=== PATIENT | male | born 1950 | race Caucasian/White ===

== ENCOUNTER → 2017-12-03 08:31 | Outpatient (CLI) | payer MEDICARE, BC, SELFPAY ==
--- NOTE | 2017-12-03 08:27 | DI.REPORT_ITS ---
SYMPTOM/DIAGNOSIS: F/U LT IF FRX LEFT INDEX FINGER: Three views. Comparison 11/17/17. There is again seen a percutaneous pin transfixing the distal interphalangeal joint of the left index finger. The displaced fracture fragment is unchanged in alignment.
== END ==
PROVIDERS: PCP Family Medicine; Visit Provider Physician Assistant
DX: S67.191D Crushing injury of left index finger, subsequent encounter (principal); S62.631D Displaced fracture of distal phalanx of left index finger, subsequent encounter for fracture with routine healing; S61.211D Laceration without foreign body of left index finger without damage to nail, subsequent encounter; W31.0XXD Contact with mining and earth-drilling machinery, subsequent encounter; W23.0XXD Caught, crushed, jammed, or pinched between moving objects, subsequent encounter
CPT/HCPCS: 73140

== ENCOUNTER → 2017-12-31 08:15 | Outpatient (CLI) | payer MEDICARE, BC, SELFPAY | PROVIDERS: PCP Family Medicine; Visit Provider Student in an Organized Health Care Education/Training Program | DX: S62.631D Displaced fracture of distal phalanx of left index finger, subsequent encounter for fracture with routine healing (principal) | CPT/HCPCS: 99213 ==

== ENCOUNTER → 2018-02-05 08:35 | Outpatient (BNVA) | payer MEDICARE, BC, SELFPAY | PROVIDERS: Visit Provider Nurse Practitioner Gerontology | DX: N40.0 Benign prostatic hyperplasia without lower urinary tract symptoms (principal); R31.0 Gross hematuria; N52.9 Male erectile dysfunction, unspecified | CPT/HCPCS: 81003; 99213 ==

== ENCOUNTER 2018-06-05 11:08 | Outpatient (CLI) | payer MEDICARE, BC, SELFPAY ==
--- NOTE | 2018-06-05 10:15 | DI.RAD_ITS ---
SYMPTOM/DIAGNOSIS: URI SYMPTOMS WITH CHEST TIGHTNESS, SOB R06.02 PA AND LATERAL CHEST: 06/05/18 The heart is normal in size. The lungs are clear. The mediastinal structures and pleura appear intact. CONCLUSION: Normal chest.
== END 2018-06-05 11:28 ==
PROVIDERS: PCP Family Medicine; Visit Provider Family Medicine
DX: R06.02 Shortness of breath (principal); R07.89 Other chest pain
CPT/HCPCS: 87449; 71046

== ENCOUNTER → 2018-08-26 10:59 | Outpatient (BNVA) | payer MEDICARE, BC, SELFPAY | PROVIDERS: PCP Family Medicine; Visit Provider Student in an Organized Health Care Education/Training Program | DX: I21.4 Non-ST elevation (NSTEMI) myocardial infarction (principal); I10 Essential (primary) hypertension | CPT/HCPCS: 99214; 99213 ==

== ENCOUNTER 2018-09-08 00:56 | Outpatient (CLI) | payer MEDICARE, BC, SELFPAY ==
--- NOTE | 2018-09-08 10:58 | DI.CT_ITS ---
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 Sagittal and coronal reformatted images were evaluated on the Siemens work station. There is mild mucosal thickening seen in the frontal sinuses bilaterally. The ethmoid air cells are clear as are the sphenoid sinuses. There is minimal mucosal thickening seen in the floor of the maxillary sinuses bilaterally. No fluid levels are seen. The mastoid air cells are clear. The nasal septum is predominantly midline. The turbinates are unremarkable as are the ostiomeatal complexes. The orbits and retro-orbital soft tissues are unremarkable. IMPRESSION: Minimal mucosal thickening involving the frontal and maxillary sinuses bilaterally.
== END 2018-09-08 01:16 ==
PROVIDERS: PCP Family Medicine; Visit Provider Otolaryngology Otolaryngology/Facial Plastic Surgery
DX: J32.0 Chronic maxillary sinusitis (principal); H57.10 Ocular pain, unspecified eye
CPT/HCPCS: 70486

== ENCOUNTER 2018-09-14 14:09 | Outpatient (CLI) | payer MEDICARE, SELFPAY ==
[2018-09-14 15:28] LABS: C-Reactive Protein 0.16 mg/dL (0.0-0.3)
[2018-09-14 16:07] LABS: ESR 7 MM/HR (1-20)
[2018-09-16 16:06] LABS: Anaplasma phagocytophilum Negative (Negative); B. miyamotoi PCR Negative (Negative); Babesia divergens/MO-1 Negative (Negative); Babesia duncani Negative (Negative); Babesia microti Negative (Negative); Ehrlichia chaffeensis Negative (Negative); Ehrlichia ewingii/canis Negative (Negative); Ehrlichia muris eauclairensis Negative (Negative)
== END 2018-09-14 14:29 ==
PROVIDERS: PCP Family Medicine; Visit Provider Otolaryngology Otolaryngology/Facial Plastic Surgery
DX: R51 Headache (principal); H57.12 Ocular pain, left eye; W57.XXXA Bitten or stung by nonvenomous insect and other nonvenomous arthropods, initial encounter; T14.8XXA Other injury of unspecified body region, initial encounter
CPT/HCPCS: 36415; 85652; 86140; 86618; 87798

== ENCOUNTER → 2018-11-19 10:50 | Outpatient (BNVA) | payer MEDICARE, BC, SELFPAY | PROVIDERS: PCP Family Medicine; Referring Provider Physician Assistant; Visit Provider Psychiatry & Neurology Neurology | DX: G43.709 Chronic migraine without aura, not intractable, without status migrainosus (principal); R25.8 Other abnormal involuntary movements; G62.9 Polyneuropathy, unspecified; I10 Essential (primary) hypertension | CPT/HCPCS: 99205; 99215 ==

== ENCOUNTER 2018-12-15 16:04 | Outpatient (CLI) | payer MEDICARE, BC, SELFPAY ==
--- NOTE | 2018-12-15 15:30 | DI.RAD_ITS ---
SYMPTOMS/DIAGNOSIS: UPPER CERVICAL NEUROPATHY SYMPTOMS, G62.9 CERVICAL SPINE: Comparison is made with [id number]. Degenerative disc changes are again noted greatest at C 3 - 4. There are also facet degenerative changes. There is bilateral neural foraminal narrowing at C 3 - 4, left greater than right. The remaining neural foramen are well maintained. The airway appears intact. IMPRESSION: Degenerative changes greatest at C 3 - 4, causing bilateral neural foraminal narrowing.
== END 2018-12-15 16:24 ==
PROVIDERS: PCP Family Medicine; Visit Provider Family Medicine
DX: G62.9 Polyneuropathy, unspecified (principal)
CPT/HCPCS: 72050

== ENCOUNTER 2018-12-25 22:28 | Emergency (ER) | payer MEDICARE, BC, SELFPAY ==
--- NOTE | 2018-12-25 22:32 | ED.GENADUL_ITS ---
Discharge Plan Disposition Patient Disposition: HOME Condition: Good Discharge Details Chief Complaint: Chest Pain Clinical Impression: Food impaction of esophagus Primary Care Provider: Amor Myrick ED Provider: Juwan Hollins [place] Meds and New Rx's Prescriptions: Continued finasteride 5 mg tablet 5 mg PO DAILY Qty: 90 RF: 4 tamsulosin [Flomax] 0.4 mg capsule 0.8 mg PO DAILY Qty: 180 RF: 3 tadalafil [Cialis] 20 mg tablet 20 mg PO DIRECTED PRN (Reason: sexual activity) Qty: 6 RF: 0 rosuvastatin [Crestor] 20 mg tablet 20 mg PO DAILY Qty: 90 RF: 3 metoprolol succinate 50 mg tablet extended release 24 hr 50 mg PO DAILY RF: 0 lisinopril 10 mg tablet 10 mg PO DAILY Qty: 30 RF: 2 cholecalciferol (vitamin D3) 1,000 UNIT tablet 1,000 unit PO DAILY RF: 0 nitroglycerin [Nitrostat] 0.4 MG tablet, sublingual 0.4 mg Buccal ONCE RF: 0 lisinopril-hydrochlorothiazide 20-25 mg tablet 1 tab PO DAILY Qty: 90 RF: 3 gabapentin 300 mg capsule 300 mg PO DIRECTED Qty: 90 RF: 3 aspirin 81 MG tablet,chewable 81 mg PO DAILY RF: 0 ibuprofen 600 MG tablet 600 mg PO TID PRN PRNQty: 30 RF: 0 acetaminophen [Masophen] 500 MG tablet 500 mg PO Q4H PRN PRNQty: 60 RF: 0 Discharge Instructions Instructions: Food Impaction (ED) Additional Instructions: We will have you follow up with surgery for endoscopy in the future. Please chew your food well and eat slowly in the future. Return to ED if further episodes of food impaction, chest pain, shortness of breath, other concerns or problems. Referrals: Kiera Fisher MD [ [facility] STAFF PHYSICIAN] - Medical Decision Making Patient appears to have a food impaction likely steak that he ate for dinner. Will attempt effervescent granules to remove blockage. If this does not work we will move onto glucagon. Effervescent granules have worked. Patient felt the discomfort disappeared almost immediately after drinking the effervescent. He feels better. He is now able to drink a glass of water without problem. We discussed follow-up with general surgery for endoscopy in the future. We discussed chewing his food and eating slowly. Return to ED if recurrent obstruction, chest pain, shortness of breath, other concerns or problems. ECG Data Attestation: I personally reviewed and interpreted this ECG (s) as follows: Prior ECG tracings: not available for review Interpretation: Normal sinus rhythm at 68. Normal axis and intervals. No acute ST changes. HPI General Mode of arrival: ambulatory . Date/Time Provider Initiated Documentation: 12/25/18 22:30 . Limitations to Documentation: no limitations . Information obtained by: patient, RN notes reviewed and old records reviewed . HPI Narrative: Patient presents to ED with complaint of epigastric discomfort. He feels like there is something stuck in his esophagus. He denies having chest pain. He is not short of breath. He has been unable to take anything by mouth since eating at about 7:00 this evening. He is even unable to swallow his own saliva. He denies any shortness of breath. He has had similar yet mild issues in the past. Typically standing upright and walking around makes the sensation go away. Related Data Home Medications Medication Instructions Recorded Confirmed cholecalciferol (vitamin D3) 1,000 unit PO DAILY 06/28/16 12/24/18 nitroglycerin [Nitrostat] 0.4 mg BUCCAL ONCE tab-cap 03/24/17 12/25/18 acetaminophen [Masophen] 500 mg PO Q4H PRN PRN #60 tab 11/11/17 12/24/18 aspirin 81 mg PO DAILY 11/11/17 12/24/18 ibuprofen 600 mg PO TID PRN PRN #30 tab 11/11/17 12/25/18 finasteride 5 mg tablet 5 mg PO DAILY #90 tab-cap 02/05/18 12/24/18 tadalafil 20 mg tablet 20 mg PO DIRECTED PRN #6 tab 02/05/18 12/25/18 tamsulosin 0.4 mg capsule 0.8 mg PO DAILY #180 tab-cap 02/05/18 12/25/18 lisinopril 20 1 tab PO DAILY #90 tab-cap 02/26/18 12/25/18 mg-hydrochlorothiazide 25 mg tablet rosuvastatin 20 mg tablet 20 mg PO DAILY #90 tab-cap 05/28/18 12/25/18 gabapentin 300 mg capsule 300 mg PO DIRECTED #90 cap 11/24/18 12/24/18 lisinopril 10 mg tablet 10 mg PO DAILY #30 tab 11/26/18 12/25/18 metoprolol succinate 50 mg 50 mg PO DAILY 11/26/18 12/25/18 tablet,extended release 24 hr Previous Rx's Medication Instructions Recorded acetaminophen [Masophen] 500 mg PO Q4H PRN PRN #60 tab 11/11/17 ibuprofen 600 mg PO TID PRN PRN #30 tab 11/11/17 finasteride 5 mg tablet 5 mg PO DAILY #90 tab-cap 02/05/18 tadalafil 20 mg tablet 20 mg PO DIRECTED PRN #6 tab 02/05/18 tamsulosin 0.4 mg capsule 0.8 mg PO DAILY #180 tab-cap 02/05/18 lisinopril 20 1 tab PO DAILY #90 tab-cap 02/26/18 mg-hydrochlorothiazide 25 mg tablet rosuvastatin 20 mg tablet 20 mg PO DAILY #90 tab-cap 05/28/18 gabapentin 300 mg capsule 300 mg PO DIRECTED #90 cap 11/24/18 lisinopril 10 mg tablet 10 mg PO DAILY #30 tab 11/26/18 Allergies Allergy/AdvReac Type Severity Reaction Status Date / Time contrast dye AdvReac Intermediate delayed Uncoded 12/15/18 14:35 rash - occurred 3 days later (2010) Review of Systems Review of Systems As documented in HPI otherwise negative as below. 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) Erectile dysfunction (Chronic 06/04/16) Essential hypertension (Chronic 02/05/13) Foraminal stenosis of cervical region (Acute) Headache, chronic migraine without aura (Acute) Hyperlipidemia (Chronic 07/02/11) Surgical History Colonoscopy - IV Sedation (08/03/03) Colonoscopy - IV Sedation (09/29/03) Tonsillectomy Social History Smoking/Tobacco Use Status: Never Alcohol Intake: never Drug use: Never Substance use type: does not use Household members: spouse 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 Hypertensive otherwise normal vitals. Const: WDWN elderly male in NAD. HEENT: NC/AT. Normal facial exam. Eyes: Normal conjunctiva and sclera. Neck: Supple. Trachea midline. Lungs: Normal respiratory effort. Lungs are clear. Cor: RRR without murmur/gallop. Good radial pulses. GI: Soft. NT/ND. No guarding or rebound. Neuro: A+O x 3. CN grossly in tact. Good strength and no focal deficit. Ext: No C/C/E. No deformity or tenderness. Skin: Warm and dry without rash.
[2018-12-25 22:42] VITALS: BP 193/103; PULSE 72; RESP 17; TEMP 36.8; O2SAT 97
[2018-12-25] MEDS: Potassium Bicarbonate/Cit AC 25 MEQ TABLET.EFF PO (22:51)
--- NOTE | 2018-12-25 22:54 | NUR.NOTE ---
Per Dr Hollins, hold on IV/labs until further notice.Nursing Note:
[2018-12-25 23:01] VITALS: BP 156/93; PULSE 68; RESP 17; O2SAT 97
--- NOTE | 2018-12-25 23:04 | NUR.NOTE ---
pt states chest pain/feeling of object caught in throat is now resolved s/p drnking effervesent granuals. discharge pending. pt with no distress noted. Nursing Note:
== END 2018-12-25 23:15 | disposition home or self-care (01) ==
PROVIDERS: Emergency Provider Emergency Medicine; PCP Family Medicine
DX: T18.128A Food in esophagus causing other injury, initial encounter (principal); I25.10 Atherosclerotic heart disease of native coronary artery without angina pectoris; Z95.5 Presence of coronary angioplasty implant and graft; I10 Essential (primary) hypertension; K22.2 Esophageal obstruction
CPT/HCPCS: 93005; 99284; 93010

== ENCOUNTER → 2018-12-31 12:35 | Outpatient (BNVA) | payer MEDICARE, BC, SELFPAY | PROVIDERS: PCP Family Medicine; Visit Provider Nurse Practitioner Adult Health | DX: M54.2 Cervicalgia (principal); G43.709 Chronic migraine without aura, not intractable, without status migrainosus; G60.9 Hereditary and idiopathic neuropathy, unspecified; M25.512 Pain in left shoulder; I10 Essential (primary) hypertension | CPT/HCPCS: 99213 ==

== ENCOUNTER 2018-12-31 13:37 | Outpatient (CLI) | payer MEDICARE, BC, SELFPAY ==
[2018-12-31 15:22] LABS: Hemoglobin A1C 5.8 % (4.5-6.2)
[2018-12-31 15:31] LABS: TSH 1.55 uIU/mL (0.36-3.74); Vitamin B12 514 pg/mL (193-986)
[2019-01-01 13:46] LABS: Albumin 61.5 % (55.8-66.1); Total Protein 6.8 g/dl (6.3-8.2)
== END 2018-12-31 13:57 ==
PROVIDERS: PCP Family Medicine; Visit Provider Nurse Practitioner Adult Health
DX: G62.9 Polyneuropathy, unspecified (principal); I10 Essential (primary) hypertension; R73.09 Other abnormal glucose
CPT/HCPCS: 36415; 99213; 82607; 83036; 84165; 84443

== ENCOUNTER 2019-01-11 00:32 | Outpatient (CLI) | payer MEDICARE, BC, SELFPAY ==
--- NOTE | 2019-01-11 11:35 | DI.MRI_ITS ---
SYMPTOM/DIAGNOSIS: C3-4 FORAMINAL STENOSIS, NEEDS MRI FOR PAIN CLINIC M48.02, SPINAL STENOSIS CERVICAL REGION CERVICAL SPINE MRI: 01/11 MRI examination of the cervical spine was performed according to the usual protocol. There is a moderate exaggerated cervical lordosis. No significant bony signal abnormality seen. The visualized posterior fossa structures appear intact. There are mild hypertrophic changes of the facet joints and end plates as noted on plain films. At C3-4 there is an apparent central to left lateral disc herniation. There is narrowing of the neural foramen on the left at this level. No definite cord impingement and the intra cord signal appears normal throughout the cervical region. No additional disc abnormality seen. Neural foramina otherwise appear well maintained. CONCLUSION: Central and left sided disc herniation at C3-4 with associated left neural foraminal narrowing. No gross cervical spinal cord deformity or signal abnormality
== END 2019-01-11 00:52 ==
PROVIDERS: PCP Family Medicine; Visit Provider Family Medicine
DX: M48.02 Spinal stenosis, cervical region (principal); M50.23 Other cervical disc displacement, cervicothoracic region
CPT/HCPCS: 72141

== ENCOUNTER → 2019-03-08 08:30 | Outpatient (BNVA) | payer MEDICARE, BC, SELFPAY | PROVIDERS: PCP Family Medicine; Visit Provider Nurse Practitioner Gerontology | DX: N40.1 Benign prostatic hyperplasia with lower urinary tract symptoms (principal); R35.1 Nocturia; Z87.448 Personal history of other diseases of urinary system; N52.9 Male erectile dysfunction, unspecified; I10 Essential (primary) hypertension | CPT/HCPCS: 81003; 99213 ==

== ENCOUNTER → 2019-03-29 08:35 | Outpatient (BNVA) | payer MEDICARE, BC, SELFPAY | PROVIDERS: PCP Family Medicine; Referring Provider Family Medicine; Visit Provider Nurse Practitioner Adult Health | DX: G43.709 Chronic migraine without aura, not intractable, without status migrainosus (principal); G60.9 Hereditary and idiopathic neuropathy, unspecified | CPT/HCPCS: 99213 ==

== ENCOUNTER 2019-04-30 07:47 | Outpatient (REF) | payer MEDICARE, BC, SELFPAY ==
[2019-05-06 11:06] LABS: BUN 25 mg/dL (10-26); CO2 Total 30 mEq/L (22-32); Chloride 103 mEq/dL (96-110); Glucose 84 mg/dL (70-100); Potassium 3.8 mEq/L (3.5-5.0); Sodium 140 mEq/L (136-145)
[2019-05-06 11:22] LABS: eGFR 88 (>60)
[2019-05-06 11:23] LABS: Calcium 9.4 mg/dL (8.5-10.5)
== END 2019-04-30 08:07 ==
LOC: LBN 07:47
PROVIDERS: PCP Family Medicine; Visit Provider Family Medicine
DX: I95.1 Orthostatic hypotension (principal)
CPT/HCPCS: 80048

== ENCOUNTER 2019-09-03 10:00 | Outpatient (CLI) | payer MEDICARE, BC, SELFPAY ==
--- NOTE | 2019-09-03 13:00 | DI.CT_ITS ---
EXAM: CT HEAD WO CLINICAL HISTORY: Chronic worsening headache,R51. TECHNIQUE: Imaging Protocol: Axial computed tomography images with coronal and sagittal reformatted images were created and reviewed COMPARISON: CT sinus wo from 09/08/2018 FINDINGS: Ventricles and Extra axial spaces: Normal in size and morphology for the patient's age. Hemorrhage: None. Cerebral parenchyma: There are areas of decreased attenuation in the white matter most consistent wit h small vessel ischemic disease. No evidence of an acute territorial infarct. Midline shift: None. Brainstem/Cerebellum: Normal. Calvarium: Normal. Visualized Paranasal sinuses/Mastoids: Clear. Soft Tissues: Unremarkable. IMPRESSION: No acute intracranial process. RADIATION DOSE DELIVERED: Total DLP DATA REPOSITORY: All CT scans at this facility are submitted to the National Radiology Data Registry (NRDR) Dose Index Registry (DIR) with the [employer] (ACR). RADIATION OPTIMIZATION: All CT scans at this facility use at least one of these dose optimization te chniques: automated exposure control; mA and/or kV adjustment per patient size (includes targeted exa ms where dose is matched to clinical indication); or iterative reconstruction.
== END 2019-09-03 10:20 ==
PROVIDERS: PCP Family Medicine; Visit Provider Family Medicine
DX: R51 Headache (principal)
CPT/HCPCS: 70450

== ENCOUNTER → 2019-09-23 08:29 | Outpatient (BNVA) | payer MEDICARE, BC, SELFPAY | PROVIDERS: PCP Family Medicine; Referring Provider Family Medicine; Visit Provider Nurse Practitioner Adult Health | DX: G43.709 Chronic migraine without aura, not intractable, without status migrainosus (principal); R49.8 Other voice and resonance disorders; I10 Essential (primary) hypertension | CPT/HCPCS: 99213 ==

== ENCOUNTER → 2019-10-25 10:59 | Outpatient (BNVA) | payer MEDICARE, BC, SELFPAY | PROVIDERS: PCP Family Medicine; Referring Provider Family Medicine; Visit Provider Internal Medicine Cardiovascular Disease | DX: G47.33 Obstructive sleep apnea (adult) (pediatric) (principal); E78.5 Hyperlipidemia, unspecified; I25.119 Atherosclerotic heart disease of native coronary artery with unspecified angina pectoris; I10 Essential (primary) hypertension | CPT/HCPCS: 99204; 99215 ==

== ENCOUNTER → 2019-11-04 11:00 | Outpatient (BNVA) | payer MEDICARE, BC, SELFPAY | PROVIDERS: PCP Family Medicine; Referring Provider Family Medicine; Visit Provider Nurse Practitioner Adult Health | DX: G43.709 Chronic migraine without aura, not intractable, without status migrainosus; I10 Essential (primary) hypertension | CPT/HCPCS: 64405; 99213 ==

== ENCOUNTER 2019-11-16 01:38 | Outpatient (CLI) | payer MEDICARE, BC, SELFPAY ==
--- NOTE | 2019-11-16 14:45 | DI.MRI_ITS ---
EXAM: MR BRAIN WO CLINICAL HISTORY: worsening daily headaches, unresponsive to tx, chronic daily calixto, R51. TECHNIQUE: Multiplanar multisequence MRI was performed. COMPARISON: No exams were available for comparison FINDINGS: MR examination of brain was performed according to the usual protocol. Ventricular system is normal in appearance. Mild periventricular and subcortical foci of abnormal signal are seen consistent with microvascular ischemic changes. No other significant signal abnormality identified in the brain. D iffusion-weighted imaging shows no evidence of infarction. Susceptibility weighted imaging shows no evidence intracranial hemorrhage. There is normal flow void in the ziffrk-zz-[id number] vasculature. The orbital and temporal bone structu res appear intact. Pituitary appears intact. IMPRESSION: Mild presumed microvascular ischemic changes sparing the corpus callosum. No other significant findi ngs. DATA REPOSITORY:
== END 2019-11-16 01:58 ==
PROVIDERS: PCP Family Medicine; Visit Provider Nurse Practitioner Adult Health
DX: R51 Headache (principal)
CPT/HCPCS: 70551

== ENCOUNTER 2019-12-02 02:56 | Outpatient (CLI) | payer MEDICARE, BC, SELFPAY ==
[2019-12-02 09:40] LABS: ALT 38 U/L (16-63); AST 25 U/L (15-37); Albumin 4.1 g/dL (3.4-5.0); Alkaline Phosphatase 78 U/L (46-116); Anion Gap 7.2 mmol/L (3-11); BUN 26 mg/dL (7-18); Bilirubin, Total 0.8 mg/dL (0.2-1.0); CO2 30.8 mmol/L (21.0-32.0); CREATININE 1.07 mg/dL (0.70-1.30); Calcium 9.1 mg/dL (8.5-10.1); Chloride 106 mmol/L (98-107); Glucose 114 mg/dL (74-106); Potassium 3.4 mmol/L (3.5-5.1); Sodium 144 mmol/L (136-145); Total Protein 7.2 g/dL (6.4-8.2)
[2019-12-05 16:48] LABS: Testosterone, Free 5.61 ng/dL (3.47-13.0); Testosterone, Total 374 ng/dL (240-950)
== END 2019-12-02 03:16 ==
PROVIDERS: PCP Family Medicine; Visit Provider Family Medicine
DX: R53.83 Other fatigue (principal); E78.5 Hyperlipidemia, unspecified
CPT/HCPCS: 36415; 80053; 84402; 84403

== ENCOUNTER → 2019-12-09 08:27 | Outpatient (BNVA) | payer MEDICARE, BC, SELFPAY | PROVIDERS: PCP Family Medicine; Referring Provider Family Medicine; Visit Provider Nurse Practitioner Adult Health | DX: G43.709 Chronic migraine without aura, not intractable, without status migrainosus (principal); I10 Essential (primary) hypertension | CPT/HCPCS: 99213 ==

== ENCOUNTER → 2019-12-30 09:30 | Outpatient (BNVA) | payer MEDICARE, BC, SELFPAY | PROVIDERS: PCP Family Medicine; Referring Provider Family Medicine; Visit Provider Nurse Practitioner Adult Health | DX: G43.709 Chronic migraine without aura, not intractable, without status migrainosus (principal); I10 Essential (primary) hypertension | CPT/HCPCS: 99213 ==

== ENCOUNTER → 2020-01-19 11:00 | Outpatient (BNVA) | payer MEDICARE, BC, SELFPAY | PROVIDERS: PCP Family Medicine; Referring Provider Family Medicine; Visit Provider Nurse Practitioner Adult Health | DX: G43.709 Chronic migraine without aura, not intractable, without status migrainosus (principal); I10 Essential (primary) hypertension | CPT/HCPCS: 99213 ==

== ENCOUNTER 2020-02-14 12:12 | Outpatient (REF) | payer MEDICARE, BC, SELFPAY ==
--- NOTE | 2020-02-14 11:42 | SKI_PTH ---
PATIENT: Moo Barth LOC: [facility] U#:[id number] AGE/SX: 69/M ROOM: RE02/14/[address]: Carlos Epps DO : 1950 BED: DIS: 02/14/2020 SPEC #: [id number] RECD: 02/14/20 18:28 STATUS: SURY REQ #: [id number] GABRIELA: 02/14/20 11:[address]: Carlos Epps DEPT: Surgical Specimen RECD BY: Sabra Moy ENTERED: 02/14/20 18:28 SP TYPE: SKI OTHR DR: Amor Myrick DO Tissues: 1 - SKIN BIOPSY(SHAVE/PUNCH) Procedures: SKIN LEVEL 4 Comments: [id number]
== END 2020-02-14 12:32 ==
LOC: LBN 12:12
PROVIDERS: PCP Family Medicine; Visit Provider Otolaryngology Otolaryngology/Facial Plastic Surgery
DX: D22.39 Melanocytic nevi of other parts of face (principal)
CPT/HCPCS: 88305

== ENCOUNTER → 2020-03-06 08:32 | Outpatient (BNVA) | payer MEDICARE, BC, SELFPAY | PROVIDERS: PCP Family Medicine; Referring Provider Family Medicine; Visit Provider Nurse Practitioner Gerontology | DX: N40.0 Benign prostatic hyperplasia without lower urinary tract symptoms (principal); R31.0 Gross hematuria; N52.9 Male erectile dysfunction, unspecified; I10 Essential (primary) hypertension | CPT/HCPCS: 81003; 99213 ==

== ENCOUNTER 2020-03-06 09:15 | Outpatient (REF) | payer MEDICARE, BC, SELFPAY | END 2020-03-06 09:35 | LOC: LBN 09:15 | PROVIDERS: PCP Family Medicine; Visit Provider Nurse Practitioner Gerontology | DX: N40.1 Benign prostatic hyperplasia with lower urinary tract symptoms (principal) | CPT/HCPCS: 84153 ==

== ENCOUNTER → 2020-03-22 12:39 | Outpatient (BNVA) | payer MEDICARE, BC, SELFPAY | PROVIDERS: PCP Family Medicine; Referring Provider Family Medicine; Visit Provider Nurse Practitioner Adult Health | DX: G43.709 Chronic migraine without aura, not intractable, without status migrainosus (principal) | CPT/HCPCS: 99213; 99441 ==

== ENCOUNTER 2020-03-31 04:48 | Outpatient (CLI) | payer MEDICARE, BC, SELFPAY ==
[2020-03-31 08:23] LABS: Anion Gap 7.3 mmol/L (3-11); BUN 22 mg/dL (7-18); CO2 28.7 mmol/L (21.0-32.0); CREATININE 1.06 mg/dL (0.70-1.30); Calcium 8.6 mg/dL (8.5-10.1); Chloride 106 mmol/L (98-107); Glucose 114 mg/dL (74-106); Potassium 3.4 mmol/L (3.5-5.1); Sodium 142 mmol/L (136-145)
== END 2020-03-31 05:08 ==
PROVIDERS: PCP Family Medicine; Visit Provider Family Medicine
DX: E78.5 Hyperlipidemia, unspecified (principal)
CPT/HCPCS: 36415; 80048

== ENCOUNTER → 2020-05-11 09:32 | Outpatient (BNVA) | payer MEDICARE, BC, SELFPAY | PROVIDERS: PCP Family Medicine; Referring Provider Family Medicine; Visit Provider Internal Medicine Cardiovascular Disease | DX: I25.10 Atherosclerotic heart disease of native coronary artery without angina pectoris (principal); G47.33 Obstructive sleep apnea (adult) (pediatric); I10 Essential (primary) hypertension; Z95.818 Presence of other cardiac implants and grafts; Z79.899 Other long term (current) drug therapy | CPT/HCPCS: 99214; 99213 ==

== ENCOUNTER → 2020-06-21 07:23 | Outpatient (BNVA) | payer MEDICARE, BC, SELFPAY | PROVIDERS: PCP Family Medicine; Referring Provider Family Medicine; Visit Provider Nurse Practitioner Adult Health | DX: G43.709 Chronic migraine without aura, not intractable, without status migrainosus (principal); Z87.828 Personal history of other (healed) physical injury and trauma | CPT/HCPCS: 99212; 99215 ==

== ENCOUNTER → 2020-09-18 12:39 | Outpatient (BNVA) | payer MEDICARE, BC, SELFPAY | PROVIDERS: PCP Family Medicine; Referring Provider Family Medicine; Visit Provider Nurse Practitioner Adult Health | DX: R49.8 Other voice and resonance disorders (principal); G43.719 Chronic migraine without aura, intractable, without status migrainosus; M54.2 Cervicalgia; R25.8 Other abnormal involuntary movements; I10 Essential (primary) hypertension | CPT/HCPCS: 99212; 99215 ==

== ENCOUNTER → 2020-10-31 09:11 | Outpatient (BNVA) | payer MEDICARE, BC, SELFPAY | PROVIDERS: PCP Family Medicine; Referring Provider Family Medicine; Visit Provider Internal Medicine Cardiovascular Disease | DX: I25.119 Atherosclerotic heart disease of native coronary artery with unspecified angina pectoris (principal); I10 Essential (primary) hypertension; G20 Parkinson's disease; Z79.899 Other long term (current) drug therapy | CPT/HCPCS: 99214 ==

== ENCOUNTER 2020-12-20 07:27 | Outpatient (CLI) | payer MEDICARE, BC, SELFPAY ==
[2020-12-20 15:42] LABS: Source Nasal/Nares
[2020-12-20 16:40] LABS: COVID-19 PCR Negative (Negative)
== END 2020-12-20 07:28 | disposition home or self-care (01) ==
LOC: LBO 07:28
PROVIDERS: PCP Family Medicine; Visit Provider Family Medicine
DX: Z20.822 Contact with and (suspected) exposure to COVID-19 (principal)
CPT/HCPCS: 87635

== ENCOUNTER → 2021-02-05 09:29 | Outpatient (BNVA) | payer MEDICARE, BC, SELFPAY | PROVIDERS: PCP Family Medicine; Referring Provider Family Medicine; Visit Provider Nurse Practitioner Adult Health | DX: G20 Parkinson's disease (principal); G43.709 Chronic migraine without aura, not intractable, without status migrainosus; Z79.899 Other long term (current) drug therapy | CPT/HCPCS: 99213 ==

== ENCOUNTER → 2021-03-19 13:07 | Outpatient (BNVA) | payer MEDICARE, BC, SELFPAY | PROVIDERS: PCP Family Medicine; Referring Provider Family Medicine; Visit Provider Urology | DX: N40.1 Benign prostatic hyperplasia with lower urinary tract symptoms (principal); R31.29 Other microscopic hematuria | CPT/HCPCS: 81003; 99213 ==

== ENCOUNTER 2021-04-17 02:58 | Outpatient (CLI) | payer MEDICARE, BC, SELFPAY ==
[2021-04-17 08:13] LABS: ALT 40 U/L (16-63); AST 25 U/L (15-37); Albumin 3.8 g/dL (3.4-5.0); Alkaline Phosphatase 80 U/L (46-116); Anion Gap 7.5 mmol/L (3-11); BUN 20 mg/dL (7-18); Bilirubin, Total 0.7 mg/dL (0.2-1.0); CO2 31.5 mmol/L (21.0-32.0); CREATININE 1.1 mg/dL (0.70-1.30); Calcium 8.7 mg/dL (8.5-10.1); Calculated LDL 63 mg/dL (<100); Chloride 104 mmol/L (98-107); Cholesterol 122 mg/dL (<200); Glucose 101 mg/dL (74-106); HDL Cholesterol 44 mg/dL (40-60); Potassium 3.3 mmol/L (3.5-5.1); Sodium 143 mmol/L (136-145); Triglyceride 75 mg/dL (<150)
== END 2021-04-17 02:59 | disposition home or self-care (01) ==
LOC: LBO 02:58
PROVIDERS: PCP Family Medicine; Visit Provider Family Medicine
DX: E78.5 Hyperlipidemia, unspecified (principal)
CPT/HCPCS: 36415; 80053; 80061

== ENCOUNTER → 2021-04-30 09:54 | Outpatient (BNVA) | payer MEDICARE, BC, SELFPAY | PROVIDERS: PCP Family Medicine; Referring Provider Family Medicine; Visit Provider Internal Medicine Cardiovascular Disease | DX: I25.119 Atherosclerotic heart disease of native coronary artery with unspecified angina pectoris (principal); I10 Essential (primary) hypertension; G20 Parkinson's disease | CPT/HCPCS: 99213 ==

== ENCOUNTER → 2021-08-06 09:18 | Outpatient (BNVA) | payer MEDICARE, BC, SELFPAY | PROVIDERS: PCP Family Medicine; Visit Provider Psychiatry & Neurology Neurology | DX: G20 Parkinson's disease (principal); Z98.890 Other specified postprocedural states; G47.52 REM sleep behavior disorder; G43.719 Chronic migraine without aura, intractable, without status migrainosus | CPT/HCPCS: 99215 ==

== ENCOUNTER → 2021-11-14 09:16 | Outpatient (BNVA) | payer MEDICARE, BC, SELFPAY | PROVIDERS: PCP Family Medicine; Referring Provider Family Medicine; Visit Provider Psychiatry & Neurology Neurology | DX: G20 Parkinson's disease (principal); G47.52 REM sleep behavior disorder; G43.719 Chronic migraine without aura, intractable, without status migrainosus | CPT/HCPCS: 99214 ==

== ENCOUNTER → 2021-12-26 10:45 | Outpatient (BNVA) | payer MEDICARE, BC, SELFPAY | PROVIDERS: PCP Family Medicine; Referring Provider Family Medicine; Visit Provider Psychiatry & Neurology Neurology | DX: G20 Parkinson's disease (principal); G47.52 REM sleep behavior disorder; G43.719 Chronic migraine without aura, intractable, without status migrainosus | CPT/HCPCS: 99214 ==

== ENCOUNTER → 2022-03-18 14:23 | Outpatient (BNVA) | payer MEDICARE, BC, SELFPAY | PROVIDERS: PCP Family Medicine; Visit Provider Nurse Practitioner Gerontology | DX: R35.1 Nocturia (principal); R31.0 Gross hematuria; N52.9 Male erectile dysfunction, unspecified; N40.1 Benign prostatic hyperplasia with lower urinary tract symptoms | CPT/HCPCS: 36415; 51798; 81003; 99213 ==

== ENCOUNTER 2022-03-18 16:38 | Outpatient (REF) | payer MEDICARE, BC, SELFPAY ==
[2022-03-19 19:16] LABS: PSA, Screening 1.6 ng/mL (<=6.5)
== END 2022-03-18 16:39 | disposition home or self-care (01) ==
LOC: LBN 16:38
PROVIDERS: PCP Family Medicine; Visit Provider Nurse Practitioner Gerontology
DX: N40.0 Benign prostatic hyperplasia without lower urinary tract symptoms (principal); Z12.5 Encounter for screening for malignant neoplasm of prostate
CPT/HCPCS: 84153

== ENCOUNTER 2022-04-30 09:53 | Outpatient (CLI) | payer MEDICARE, BC, SELFPAY ==
--- NOTE | 2022-04-30 09:45 | RT.EKG_ITS ---
APPROVED REPORT Exam: Resting ECG Reason for Exam: f/u Patient Location: O HR:66 bpm ECG Measurements Heart Rate [address] 227 P 17 QRSd 172 QRS 45 QT 453 T -17 QTc 475 Conclusion Sinus rhythm...normal P axis, V-rate 50- 99 First-degree AV block Right bundle branch block...QRSd>120, terminal axis(90,270)
== END 2022-04-30 09:54 | disposition home or self-care (01) ==
LOC: DI.CARD 09:55
PROVIDERS: PCP Family Medicine; Visit Provider Internal Medicine Cardiovascular Disease
DX: I25.119 Atherosclerotic heart disease of native coronary artery with unspecified angina pectoris (principal); R94.31 Abnormal electrocardiogram [ECG] [EKG]; I44.0 Atrioventricular block, first degree; I45.19 Other right bundle-branch block
CPT/HCPCS: 93010

== ENCOUNTER → 2022-04-30 09:55 | Outpatient (BNVA) | payer MEDICARE, BC, SELFPAY | PROVIDERS: PCP Family Medicine; Referring Provider Family Medicine; Visit Provider Internal Medicine Cardiovascular Disease | DX: I25.10 Atherosclerotic heart disease of native coronary artery without angina pectoris (principal); I10 Essential (primary) hypertension; G20 Parkinson's disease | CPT/HCPCS: 93005; 99213 ==

== ENCOUNTER → 2022-05-15 09:16 | Outpatient (BNVA) | payer MEDICARE, BC, SELFPAY | PROVIDERS: PCP Family Medicine; Referring Provider Family Medicine; Visit Provider Psychiatry & Neurology Neurology | DX: G20 Parkinson's disease (principal); G47.52 REM sleep behavior disorder; G43.719 Chronic migraine without aura, intractable, without status migrainosus; M54.2 Cervicalgia | CPT/HCPCS: 99214 ==

== ENCOUNTER → 2022-06-26 10:24 | Outpatient (BNVA) | payer MEDICARE, BC, SELFPAY | PROVIDERS: PCP Family Medicine; Referring Provider Family Medicine; Visit Provider Psychiatry & Neurology Neurology | DX: G20 Parkinson's disease (principal); G47.52 REM sleep behavior disorder; G43.719 Chronic migraine without aura, intractable, without status migrainosus | CPT/HCPCS: 99214 ==

== ENCOUNTER 2022-07-19 01:50 | Outpatient (CLI) | payer MEDICARE, BC, SELFPAY ==
[2022-07-19 10:04] LABS: Anion Gap 6.8 mmol/L (3-11); BUN 20 mg/dL (7-18); CO2 33.2 mmol/L (21.0-32.0); CREATININE 1.1 mg/dL (0.70-1.30); Calcium 9.3 mg/dL (8.5-10.1); Chloride 103 mmol/L (98-107); Estimated GFR 71.77 (mL/min/1.73m2); Glucose 123 mg/dL (74-106); Potassium 3.1 mmol/L (3.5-5.1); Sodium 143 mmol/L (136-145)
== END 2022-07-19 01:51 | disposition home or self-care (01) ==
LOC: LBO 01:51
PROVIDERS: PCP Family Medicine; Referring Provider Family Medicine; Visit Provider Family Medicine
DX: E87.6 Hypokalemia (principal); I10 Essential (primary) hypertension; E78.5 Hyperlipidemia, unspecified
CPT/HCPCS: 36415; 80048

== ENCOUNTER → 2022-08-02 13:08 | Outpatient (BNVA) | payer MEDICARE, BC, SELFPAY | PROVIDERS: PCP Family Medicine; Referring Provider Family Medicine; Visit Provider Internal Medicine Cardiovascular Disease | DX: R60.0 Localized edema (principal); I25.119 Atherosclerotic heart disease of native coronary artery with unspecified angina pectoris; G47.33 Obstructive sleep apnea (adult) (pediatric) | CPT/HCPCS: 99214 ==

== ENCOUNTER → 2022-08-07 09:53 | Outpatient (BNVA) | payer MEDICARE, BC, SELFPAY | PROVIDERS: PCP Family Medicine; Visit Provider Psychiatry & Neurology Neurology | DX: G20 Parkinson's disease (principal); G47.52 REM sleep behavior disorder; G43.719 Chronic migraine without aura, intractable, without status migrainosus | CPT/HCPCS: 99214 ==

== ENCOUNTER 2022-08-21 01:43 | Outpatient (CLI) | payer MEDICARE, BC, SELFPAY ==
--- NOTE | 2022-08-21 10:34 | DI.US_ITS ---
APPROVED REPORT EXAM: Comprehensive 2D, Doppler, and color-flow Echocardiogram Patient Location: Out-Patient Document Scanner: Anthony Green RDMS, RVT Indications: edema, check LV function, CAD, sleep apnea Other Information Study Quality: Adequate Conclusion Normal left ventricular wall thickness and chamber size. Estimated ejection fraction is 55%. Wall m otion appears normal Right ventricle is mildly enlarged and mildly hypocontractile Left atrium is mildly dilated. Right atrial size is normal Mild mitral annular calcification, mild mitral regurgitation Wall motion Left Ventricle The left ventricle is normal size. The left ventricular systolic function is normal. The left ventric ular ejection fraction is within the normal range. There is normal left ventricular wall thickness. T here is normal LV segmental wall motion. There is no ventricular septal defect visualized. LVEF is 55 %. Right Ventricle Right ventricle is borderline dilated Right ventricular systolic function is mildly reduced Unable to assess PA pressure. Atria The left atrium size is mildly dilated The right atrium size is normal. The interatrial septum is int act with no evidence for an atrial septal defect. Aortic Valve The aortic valve is normal in structure. There is no aortic valvular stenosis. No aortic regurgitatio n is present. Mitral Valve Mild mitral annular calcification. No evidence of mitral valve stenosis. Mild mitral regurgitation. Tricuspid Valve The tricuspid valve is normal in structure. There is no tricuspid valve stenosis. Trace tricuspid reg urgitation. Pulmonic Valve The pulmonary valve is normal in structure. There is no pulmonic valvular stenosis. There is no pulmo jordy valvular regurgitation. Great Vessels The aortic root is normal in size. Ascending aorta is normal in caliber. Aortic arch is normal in ca liber. IVC is normal in size and collapses >50% with inspiration. Pericardium There is no pericardial effusion. 2D Dimensions IVSD d PLAX 0.95 cm M: 0.6-1.2 LV Vol A2C d MOD 126.9 mL LVPW d PLAX 0.94 cm M: 0.6 - 1.2 LV Vol A4C d MOD 130.4 mL LVID d PLAX 5.14 cm M: 4.2 - 5.8 LA vol/ BSA A2C s A-L 27.2 mL/m2 LVDs 3.80 cm M: 2.5 - 4.0 LA vol/ BSA A4C s A-L 31.1 mL/m2 Ao Root d 3.36 cm M: 3.1 - 3.7 LA Vol/ BSA Biplane s A-L 29.7 mL/m2 Ao Asc Diam d 3.46 cm M: 2.6 - 3.4 LA Area A4C s MOD 23.82 cm2 LV EF Teichholz 49.8 % LA Area A2C s MOD 21.76 cm2 LVEF (Mallory's) 50.09 % M: 52 - 72 LV EF A4C MOD 50.1 % LV Volume 90.13 mL M: 62 - 150 LV EF A2C MOD 50.2 % LV Volume Index 34.66 mL/m2 M: 34 - 74 LV EF Biplane MOD 50.1 % LV Vol Biplane MOD 130.1 mL SV 65.17 mL FS 25.35 % SV Index 25.12 mL/m2 M-Mode TAPSE 2.47 cm (M/F) >1.7 LV Diastology MV E' medial 0.065 (>0.07 m/s) E/A Ratio 0.7 LV E/e MED 10.20 (<14) MV E Vmax 0.66 (0.4-1.3 m/s) MV E' lateral 0.089 (>0.1 m/s) MV A Vmax 1.00 (0.4-1.3 m/s) LV E/e LAT 7.40 (<14) MV E/A Ratio 0.65 MV E/E' medial 10.23 MV E/E' lateral 7.42 Aortic Valve LVOT Area 3.63 cm2 AoV Area Vmax 2.92 cm2 LVOT Vmax 0.99 m/s AoV Area/ BSA (Vmax) 1.13 cm2/m2 LVOT Mean Naveen. 0.68 m/s SALLIE Mean Naveen. 2.88 cm2 LVOT Peak Grad 3.9 mmHg SALLIE Mean Naveen. Index 1.11 cm2/m2 LVOT Mean Grad 2.1 mmHg LVOT VTI 0.215 m LVOT Diam s 2.10 cm AoV Vmax 1.23 m/s Velocity Ratio 0.80 AoV Mean Naveen. 0.86 m/s AoV Peak Grad 6.1 mmHg LVOT SV 78.06 mL AoV Mean Grad 3.3 mmHg AoV VTI 0.289 m AoV Area VTI 2.70 cm2 AoV Area/ BSA (VTI) 1.04 cm/m2 Mitral Valve MV DT 237 (160-240 msec) MV PHT 69 msec MV Area PHT 3.20 cm2 MV VTI 0.321 m MV Area VTI 2.43 (4.0-6.0 cm2) Pulmonary Valve PV Vmax 0.90 (0.5-1.5 m/s) RVOT Peak Gr. 1.80 mmHg PV Peak Grad 3.2 mmHg RVOT Mean Gr. 0.75 mmHg PV Mean Grad 2.1 mmHg RVOT VTI 0.120 m PV VTI 0.166 m RVOT Vmax 0.67 m/s Tricuspid Valve RA Pressure 3.00 mmHg
== END 2022-08-21 02:03 ==
PROVIDERS: PCP Family Medicine; Visit Provider Internal Medicine Cardiovascular Disease
DX: G47.33 Obstructive sleep apnea (adult) (pediatric) (principal); I25.119 Atherosclerotic heart disease of native coronary artery with unspecified angina pectoris; R60.9 Edema, unspecified
CPT/HCPCS: 93306

== ENCOUNTER 2022-09-12 23:23 | Emergency (ER) | payer MEDICARE, BC, SELFPAY ==
[2022-09-12 23:28] VITALS: BP 187/93; PULSE 96; RESP 16; TEMP 36.8; O2SAT 93
--- NOTE | 2022-09-12 23:37 | NUR.NOTE ---
E-Z gas given-feels a little better.Nursing Note:
[2022-09-12] MEDS: Ondansetron O.D.T. 4 MG TABEF SL (23:40)
--- NOTE | 2022-09-12 23:41 | ED.GENADUL_ITS ---
Discharge Plan Disposition Patient Disposition: Home Discharge Details Chief Complaint: ForeignBody Clinical Impression: Food impaction of esophagus Primary Care Provider: Amor Myrick ED Provider: Mark Jones Home Meds and New Rx's Prescriptions: No Action potassium chloride 10 mEq capsule, extended release 20 meq PO BID Qty: 180 3RF furosemide 40 mg tablet 40 mg PO DAILY Qty: 90 3RF magnesium oxide 400 mg magnesium capsule 400 mg PO DAILY carbidopa-levodopa [Sinemet] 25-100 mg tablet 2 tab PO TID Qty: 540 3RF cholecalciferol (vitamin D3) 1,000 UNIT tablet 1,000 unit PO DAILY amlodipine 5 mg tablet 5 mg PO DAILY Qty: 90 3RF rosuvastatin [Crestor] 20 mg tablet 20 mg PO DAILY Qty: 90 3RF Rx Instructions: LOWER LDL <80 DUE TO CAD finasteride 5 mg tablet 5 mg PO DAILY Qty: 90 4RF lisinopril 20 mg tablet 20 mg PO .pm Qty: 90 3RF tamsulosin [Flomax] 0.4 mg capsule 0.4 mg PO DAILY Qty: 90 4RF duloxetine 60 mg capsule,delayed release(DR/EC) 60 mg PO HS Qty: 90 3RF Vyepti 100 mg/mL solution 300 mg IV [id number] Rx Instructions: administer over 30 mins armodafinil 150 mg tablet 150 mg PO QAM Qty: 30 5RF metoprolol succinate 50 mg tablet extended release 24 hr 50 mg PO DAILY Qty: 90 3RF aspirin 81 MG tablet,chewable 81 mg PO DAILY Discharge Instructions Instructions: Food Impaction (ED) Additional Instructions: Please follow-up with GI specialist to consider upper endoscopy. Please return to the emergency department for any worsening symptoms Medical Decision Making 72-year-old male presents with esophageal foreign body sensation in the setting of eating pork earlier this evening. Has had retained food product in esophagus in the past without need for endoscopy stenting or dilation. Patient appears mildly uncomfortable however is tolerating secretions normal voice no vomiting no stridor. Likely meat bolus in lower esophagus. Lower suspicion for esophageal tear or rupture lower suspicion for pneumothorax ACS PE or aortic pathology. Trial of effervescent solution if unsuccessful will consider glucagon and/or nitro and Ativan. 00: 31 patient resting comfortably feeling much better after effervescent packet administration. Asymptomatic. Tolerating secretions tolerating p.o. challenge. Patient will follow-up with GI HPI General Date/Time Provider Initiated Documentation: 09/12/22 23:24 . HPI Narrative: 72-year-old male presents with foreign body sensation in the lower chest in the setting of eating pork. History of esophageal foreign body has never required endoscopy or stenting or dilation in the past. Related Data Home Medications Medication Instructions Recorded Confirmed cholecalciferol (vitamin D3) 25 1,000 unit PO DAILY 06/28/16 09/12/22 mcg (1,000 unit) tablet aspirin 81 mg chewable tablet 81 mg PO DAILY 11/11/17 09/12/22 magnesium oxide 400 mg PO DAILY 02/24/19 09/12/22 amlodipine 5 mg tablet 5 mg PO DAILY #90 tabs 04/04/22 09/12/22 rosuvastatin 20 mg tablet (Crestor) 20 mg PO DAILY #90 tab-caps 04/04/22 09/12/22 finasteride 5 mg tablet 5 mg PO DAILY #90 tab-caps 04/19/22 09/12/22 lisinopril 20 mg tablet 20 mg PO .pm #90 tabs 05/03/22 09/12/22 carbidopa 25 mg-levodopa 100 mg 2 tab PO TID #540 tabs 05/15/22 09/12/22 tablet (Sinemet) tamsulosin 0.4 mg capsule (Flomax) 0.4 mg PO DAILY #90 tab-caps 05/27/22 09/12/22 duloxetine 60 mg capsule,delayed 60 mg PO HS #90 caps 07/01/22 09/12/22 release eptinezumab-jjmr 100 mg/mL 300 mg IV [id number] 07/05/22 09/12/22 intravenous solution (Vyepti) armodafinil 150 mg tablet 150 mg PO QAM #30 tabs 07/13/22 09/12/22 furosemide 40 mg tablet 40 mg PO DAILY #90 tabs 08/02/22 09/12/22 potassium chloride 10 mEq 20 meq PO BID #180 caps 08/02/22 09/12/22 capsule,extended release metoprolol succinate 50 mg 50 mg PO DAILY #90 tabs 09/09/22 09/12/22 tablet,extended release 24 hr Previous Rx's Medication Instructions Recorded amlodipine 5 mg tablet 5 mg PO DAILY #90 tabs 04/04/22 rosuvastatin 20 mg tablet (Crestor) 20 mg PO DAILY #90 tab-caps 04/04/22 finasteride 5 mg tablet 5 mg PO DAILY #90 tab-caps 04/19/22 lisinopril 20 mg tablet 20 mg PO .pm #90 tabs 05/03/22 carbidopa 25 mg-levodopa 100 mg 2 tab PO TID #540 tabs 05/15/22 tablet (Sinemet) tamsulosin 0.4 mg capsule (Flomax) 0.4 mg PO DAILY #90 tab-caps 05/27/22 duloxetine 60 mg capsule,delayed 60 mg PO HS #90 caps 07/01/22 release armodafinil 150 mg tablet 150 mg PO QAM #30 tabs 07/13/22 furosemide 40 mg tablet 40 mg PO DAILY #90 tabs 08/02/22 potassium chloride 10 mEq 20 meq PO BID #180 caps 08/02/22 capsule,extended release metoprolol succinate 50 mg 50 mg PO DAILY #90 tabs 09/09/22 tablet,extended release 24 hr Allergies Allergy/AdvReac Type Severity Reaction Status Date / Time contrast dye AdvReac Intermediate delayed Uncoded 09/12/22 23:36 rash - occurred 3 days later (2010) General Stated Complaint: ForeignBody JANAY: 2 Review of Systems Narrative: Review of Systems Constitutional: negative Eyes: negative ENT: negative Cardiovascular: negative Respiratory: negative Gastrointestinal: Esophageal foreign body : negative Musculoskeletal: negative Skin: negative Neurologic: negative Psych: negative PFSH All Active Problems (Updated 09/13/22 @ 00:32 by Mark Jones MD) Food impaction of esophagus (Acute) Laxity of knee joint (Acute) Chronic migraine without aura, with intractable migraine, so stated, with status migrainosus (Acute) Coronary artery disease (Chronic) Actinic keratitis (Acute) Personal history of other malignant neoplasm of skin (Acute) REM sleep behavior disorder (Acute) Arthritis of knee (Acute) Parkinson disease (Chronic 11/14/20) Sensory hearing loss, bilateral (Acute) Gastro-esophageal reflux disease without esophagitis (Acute) Tinnitus (Acute) Intractable chronic common migraine without aura (Acute) 05/22/20 ENT for Therapeutic [place]. Epps Hypophonia (Acute) Moderate obstructive sleep apnea (Chronic 11/09/19) C-PAP started 04/15/19 Cervicalgia (Acute) Foraminal stenosis of cervical region (Acute) Effusion of right knee (Acute 11/26/16) Gross hematuria (Acute 04/01/16) Neck and shoulder pain (Acute 07/03/16) Peripheral neuropathy (Acute) Bradykinesia (Acute) Headache, chronic migraine without aura (Acute) Chronic maxillary sinusitis (Acute) 08/31/18 TIM Epps Hyperlipidemia (Chronic 07/02/11) GOAL LDL<70, CRESTOR 20 EFFECTIVE BPH w/o urinary obs/LUTS (Chronic 02/10/12) Essential hypertension (Chronic 02/05/13) goal 130/85 Erectile dysfunction (Chronic 06/04/16) Coronary artery disease involving [place] coronary artery of [place] heart with angina pectoris (Chronic) h/o angina; NSTEMI 04/2011: high grade LAD stented 04/12/11; more sx, two more stents 04/14/11; ECHO 2014: EF 60%; mild MR Benign non-nodular prostatic hyperplasia with lower urinary tract symptoms (Chronic 07/07/15) 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 Essential hypertension Father , V FIB at age 79. No problems noted. Sister No problems noted. Sister No problems noted. Brother Heart disease Son No problems noted. 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 Pets and animals: No Sexually active: Yes Do you think of yourself as: straight/heterosexual Current gender identity: male What is your relationship status?: How often do you talk on the phone with friends or family?: three or more times per week How often do you get together with friends or relatives?: three or more times per week Do you belong to any clubs or organized social groups?: yes Panel score (0-1 are the most socially isolated patients): 3 What type of physical activity do you participate in: regular exercise and other Details: [employer] Program Duration: 60-90 minutes/day Frequency: 3-4 times per week Special marcelino needs: No Seatbelt use: always Helmet use: No Drive intox or 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: No Do you feel safe at home: Yes Do you feel safe in your relationship?: Yes Exam Narrative Exam Narrative: Physical Examination General: alert, awake, cooperative, resting comfortably, no acute distress HEENT: normocephalic, atraumatic; PERRL, EOM intact, conjunctiva normal; no nasal discharge; moist mucous membranes, oral and pharyngeal mucosa normal, tolerating secretions; normal voice no stridor Neck: supple, trachea midline; full ROM Chest: normal to inspection Respiratory: normal respiratory effort, speaking in full sentences, clear to auscultation, no wheezing, rales or rhonchi Cardiac: regular rate, regular rhythm, S1S2 intact, no murmurs rubs or gallops GI: abdomen soft, non-tender, non-distended; no palpable mass or hepatosplenomegaly Skin: no lesions, rashes or trauma appreciated Neuro: AAOx3, normal speech, moving all extremities Extremities: Psych: Appropriate mood and affect Course Vital Signs Vital signs: Vital Signs Temperature 36.8 C 09/12/22 23:28 Pulse 96 H 09/12/22 23:28 Respiratory Rate 16 09/12/22 23:28 Blood Pressure 187/93 H 09/12/22 23:28 Pulse Oximetry 93 09/12/22 23:28 Temperature 36.8 C 09/12/22 23:28 Temperature Source Temporal Artery Scan 09/12/22 23:28 Pulse 96 H 09/12/22 23:28 Respiratory Rate 16 09/12/22 23:28 Respiratory Effort Normal 09/12/22 23:39 Respiratory Pattern Normal 09/12/22 23:39 Blood Pressure 187/93 H 09/12/22 23:28 Blood Pressure Position Supine 09/12/22 23:28 Pulse Oximetry 93 09/12/22 23:28 Oxygen Delivery Method Room Air 09/12/22 23:28 Oxygen Flow Rate 0 09/12/22 23:28 Pain Level 4 09/12/22 23:28
[2022-09-12 23:46] VITALS: BP 174/92; PULSE 85; PULSE 88; RESP 22; O2SAT 94
[2022-09-12 23:47] VITALS: O2SAT 94
--- NOTE | 2022-09-12 23:48 | NUR.NOTE ---
2nd dose of EZ gas given- pt states obstruction is gone. Nursing Note:
[2022-09-12 23:50] VITALS: PULSE 86; RESP 22; O2SAT 94
[2022-09-13] VITALS: PULSE 80; RESP 17; O2SAT 95
[2022-09-13 00:01] VITALS: BP 173/88; PULSE 81; PULSE 83; RESP 18; O2SAT 94
[2022-09-13 00:10] VITALS: PULSE 85; RESP 18; O2SAT 91
[2022-09-13 00:16] VITALS: BP 167/88; PULSE 83; PULSE 84; RESP 18; O2SAT 91
[2022-09-13 00:20] VITALS: PULSE 84; RESP 19; O2SAT 90
[2022-09-13 00:35] VITALS: BP 167/88; PULSE 83; RESP 19; TEMP 36.8; O2SAT 90
== END 2022-09-13 00:37 | disposition home or self-care (01) ==
PROVIDERS: Emergency Provider Emergency Medicine; PCP Family Medicine
DX: T18.128A Food in esophagus causing other injury, initial encounter (principal); X58.XXXA Exposure to other specified factors, initial encounter
CPT/HCPCS: 99283

== ENCOUNTER → 2022-09-27 09:50 | Outpatient (BNVA) | payer MEDICARE, BC, SELFPAY | PROVIDERS: PCP Family Medicine; Referring Provider Family Medicine; Visit Provider Surgery | DX: R13.10 Dysphagia, unspecified (principal) | CPT/HCPCS: 99202; 99214 ==

== ENCOUNTER 2022-10-02 08:43 | Day surgery (SDC) | payer MEDICARE, BC, SELFPAY ==
[2022-10-02] VITALS (8 sets, daily range): BP systolic 96–164; BP diastolic 63–99; PULSE 65–84; RESP 7–24; TEMP 36.1–36.8; O2SAT 91–95; BMI 35.7
--- NOTE | 2022-10-02 08:46 | W.PM.ENDDOP ---
Date of service: 10/02/22 Time of Service: 09:54 Endoscopy Report DATE OF PROCEDURE: 10/02/22 PRE-OP DIAGNOSIS: GERD POST-OP DIAGNOSIS: same (gastritis, esophagitis and esophageal stricture) PROCEDURE: EGD with biopsies and balloon dilatation of the esophagus SURGEON: Kiera Fisher ANESTHESIA TYPE: General:No Airway ESTIMATED BLOOD LOSS: 15 PATHOLOGY: other (Bx of stomach and esophagus) COMPLICATIONS: None DISPOSITION: same day INDICATIONS: Leo is a pleasant 72-year-old gentleman with dysphagia for about 10 years.? It has progressively gotten worse.? We discussed the possible causes of dysphagia which would be reflux of acid which can cause damage to the lining of the esophagus and eventually scarring.? This could also be due to Parkinson's.? More than likely it is a combination of the Parkinson's and reflux.? I discussed with him the procedure of an upper endoscopy as well as possible balloon dilatation if he does have scar tissue down in the GE junction area.? Risks, benefits and complications have been reviewed. Complications include but are not limited to bleeding, pain, perforation, sore throat, aspiration, and adverse reaction to the medications.? Questions were entertained and answered to their satisfaction and they wished to proceed. No guarantees were given or implied.? I also discussed with him that if his upper endoscopy is completely normal then his symptoms might be due to the Parkinson's.? We could then do a manometry to see how bad his esophageal dysfunction is.? Speech therapy is sometimes able to help patients with Parkinson's.? He understands the plan to start with an upper endoscopy and then go from there.? He understands the complications.? There is a slight increase in risk of perforation of the esophagus with a balloon dilatation and this was explained to the patient. FINDINGS: Stricture of the esophagus Inflammation of the stomach and esophagus PROCEDURE DESCRIPTION: After informed consent was obtained the patient was take to the procedure room and placed in a supine position. Monitors were applied and a time out was done. The patients name, date of , procedure type, allergies to medications and metal in their body was reviewed. A bite block was placed and the patient was sedated. Once sedated and comfortable the gastroscope was advanced through the oropharynx which was grossly normal into the esophagus. The proximal and mid-esophagus were were normal. In the distal esophagus there was inflammation noted as well as a stricture. The scope was advanced into the stomach and through the pylorus into the 3rd portion of the duodenum. The duodenum was noted to be normal. The scope was retracted back into the stomach. There was inflammation and biopsies were done to rule out H. pylori. There were no ulcers. There were some benign appearing polyps. A polyp was removed for pathology. The scope was retroflexed. The cardia and fundus were noted to be normal. There was no hiatal hernia noted. The scope was retracted back into the esophagus and biopsies were done of the GE junction to rule out Tai's. The Z line was regular. The GE junction was at 40 cm. The scope was removed and the patient was woken up and taken back to [facility] in stable condition. Follow up: 2 weeks
--- NOTE | 2022-10-02 08:47 | PGE_ITS ---
Date of Service Date of service: 10/02/22 Time of Service: 09:26 Assessment and Plan Assessment and plan (1) Gastro-esophageal reflux disease without esophagitis: Status: Acute Assessment and plan: I saw Leo in same-day surgery prior to his procedure today. We reviewed the EGD procedure as well as the complications. He has no questions and no concerns. He understands the complications and wishes to proceed. Risks, benefits and complications have been reviewed. Complications include but are not limited to bleeding, pain, perforation, sore throat, aspiration, and ad verse reaction to the medications. Questions were entertained and answered to their satisfaction and they wished to proceed. No guarantees were given or implied. Proceed with EGD with possible balloon dilation. (2) Dysphagia: Status: Acute Subjective Subjective Interval history since last seen: I am seeing Moo in same-day surgery for his EGD. He is doing well. He has had no new symptoms or worsening symptoms. Exam Resp Effort & Inspection: normal respiratory effort Time Spent with Patient Time Spent with Patient: 25-34 minutes Time was spent: counseling the patient
--- NOTE | 2022-10-02 08:50 | W.PM.DSUDISC ---
Date of service: 10/02/22 Time of Service: 10:07 Discharge Plan Disposition Patient Disposition: Home Condition: Improving Discharge Details Reason For Visit: GERD Attending Provider: Kiera Fisher Primary Care Provider: Amor Myrick Home Meds and New Rx's Prescriptions: New omeprazole 40 mg capsule,delayed release(DR/EC) 40 mg PO DAILY Qty: 30 3RF methylprednisolone [Methylpred DP] 4 mg tablets,dose pack See Rx Instructions .ROUTE .COMPLEX Qty: 21 0RF Rx Instructions: orally per package directions Continued potassium chloride 10 mEq capsule, extended release 20 meq PO BID Qty: 180 3RF furosemide 40 mg tablet 40 mg PO DAILY Qty: 90 3RF magnesium oxide 400 mg magnesium capsule 400 mg PO DAILY carbidopa-levodopa [Sinemet] 25-100 mg tablet 2 tab PO TID Qty: 540 3RF cholecalciferol (vitamin D3) 1,000 UNIT tablet 1,000 unit PO DAILY amlodipine 5 mg tablet 5 mg PO DAILY Qty: 90 3RF rosuvastatin [Crestor] 20 mg tablet 20 mg PO DAILY Qty: 90 3RF Rx Instructions: LOWER LDL <80 DUE TO CAD finasteride 5 mg tablet 5 mg PO DAILY Qty: 90 4RF lisinopril 20 mg tablet 20 mg PO .pm Qty: 90 3RF tamsulosin [Flomax] 0.4 mg capsule 0.4 mg PO DAILY Qty: 90 4RF duloxetine 60 mg capsule,delayed release(DR/EC) 60 mg PO HS Qty: 90 3RF Vyepti 100 mg/mL solution 300 mg IV [id number] Rx Instructions: administer over 30 mins metoprolol succinate 50 mg tablet extended release 24 hr 50 mg PO DAILY Qty: 90 3RF aspirin 81 MG tablet,chewable 81 mg PO DAILY Discharge Instructions Instructions: Gastritis (DC), Soft Diet (DC), GERD (Gastroesophageal Reflux Disease) (DC), Esophagitis (DC), Pneumonitis (DC) Additional Instructions: Findings:Inflammation of the esophagus with narrowing. I did do some biopsies and a baloon dilatation Medication: Please take Omeprazole 40 mg daily Medrol pack You may have aspirated some acid while you where waking up. To prevent a lot of inflammation in your lungs I have sent in a Rx for prednisone. Please take as directed. If you develop shortness of breath, worsening cough or fevers please call the office or go to the ER. Follow up: 2 weeks Please call if you develop: fevers >101.5 Nausea or Vomiting Abdominal pain that is not transient Rectal bleeding that is more then a tbsp A hard abdomen and inability to pass gas DAY SURGERY UNIT POST ENDOSCOPY INSTRUCTIONS Instructions for everyone who is given Anesthesia: For your safety, please do the following for the next 24 Hours: a. Do not drive or operate dangerous equipment b. Do not drink alcohol beverages or use any recreational drugs for the first 24 hours or while taking pain medications. The medications in your body may have a reaction that can be dangerous. c. Do not make any important decisions or sign any important papers 1. Generally there are no restrictions on your activity after a day or so has gone by, but you may feel a bit fatigued for a few days. 2. After you arrive home you may have a light meal and return to a normal diet as you can tolerate it without feeling sick to your stomach. 3. After surgery, you may feel pain or discomfort. This should be only transient, but if it persists please contact your doctor. 4. If there are any questions regarding the findings of your procedure, please feel free to contact your doctor. 6. If you are unable to contact your doctor with a problem, contact the hospital at [phone]. 7. Continue all your regular medications unless directed otherwise. I understand the above instructions and have no questions. Signature of Patient or Responsible Adult Escort Date/Time Name of Responsible Adult Escort Signature of Nurse Date/Time Activity:: Activity as Tolerated Diet:: soft diet Discharge Orders Discharge Orders: Discharge Order (Routine); Ordered 10/02/22 Ordered By: Kiera Fisher DS: Diagnosis Discharge Diagnosis (1) Gastro-esophageal reflux disease without esophagitis: Status: Acute Asessment and Plan: Patient is seen and examined after their endoscopy. Patient has minimal sore throat. They have been able to tolerate liquids. They do not have any Nausea or Vomiting. They are not having any chest pain. They have been able to pass gas and are not having any abdominal pain or distention. they have not vomited any blood. Patient came back from the procedure room with low saturations and a cough. He was given a duoneb and felt better. He is still coughing a bit. His staurations are now at 91-93% on room air. As a precaution I have sent in a Prescription for a medrol pack to assist with inflamatory response to acid in his lungs. Return precautions have been discussed with him. We discussed findings on their endoscopy We reviewed the importance of lifestyle modifications- see diet recommendations We reviewed any new medications that the patient may be prescribed- see medicine reconciliation. Patient will either be sent a letter with the biopsy results or follow up in the office- see discharge instructions Patient was given explicit instructions for emergency follow up post endoscopy- see discharge instructions Patient verbalized understanding and was discharged in stable and satisfactory condition. See nursing notes. (2) Dysphagia: Status: Acute
[2022-10-02] MEDS: Lactated Ringers 1,000 ML 80 ML IV (09:14)
--- NOTE | 2022-10-02 09:18 | W.ANESPRE ---
General Info Date of Service Date Performed: 10/02/22 Height: 6 ft 4 in Weight: 133.2 kg Body Mass Index (BMI): 35.7 Surgical Procedure: Operation Date: 10/02/22 09:35 Proposed Procedure Side Surgeon p Gastroscopy Kiera Fisher MD Meds Allergies and Home Medications Allergies Allergy/AdvReac Type Severity Reaction Status Date / Time contrast dye AdvReac Intermediate delayed Uncoded 10/02/22 09:03 rash - occurred 3 days later (2010) Home Medication Medication Instructions Recorded cholecalciferol (vitamin D3) 25 1,000 unit PO DAILY 06/28/16 mcg (1,000 unit) tablet aspirin 81 mg chewable tablet 81 mg PO DAILY 11/11/17 magnesium oxide 400 mg PO DAILY 02/24/19 amlodipine 5 mg tablet 5 mg PO DAILY #90 tabs 04/04/22 rosuvastatin 20 mg tablet (Crestor) 20 mg PO DAILY #90 tab-caps 04/04/22 finasteride 5 mg tablet 5 mg PO DAILY #90 tab-caps 04/19/22 lisinopril 20 mg tablet 20 mg PO .pm #90 tabs 05/03/22 carbidopa 25 mg-levodopa 100 mg 2 tab PO TID #540 tabs 05/15/22 tablet (Sinemet) tamsulosin 0.4 mg capsule (Flomax) 0.4 mg PO DAILY #90 tab-caps 05/27/22 duloxetine 60 mg capsule,delayed 60 mg PO HS #90 caps 07/01/22 release eptinezumab-jjmr 100 mg/mL 300 mg IV [id number] 07/05/22 intravenous solution (Vyepti) furosemide 40 mg tablet 40 mg PO DAILY #90 tabs 08/02/22 potassium chloride 10 mEq 20 meq PO BID #180 caps 08/02/22 capsule,extended release metoprolol succinate 50 mg 50 mg PO DAILY #90 tabs 09/09/22 tablet,extended release 24 hr Current Visit Medications: Current Medications Generic Name Dose Route Start Last Admin Trade Name Freq PRN Reason Stop Dose Admin Ringer's Solution 1,000 mls @ 80 mls/hr 10/02/22 06:00 10/02/22 09:14 IV 10/31/22 23:59 80 mls/hr INFUSION JASON Administration IV Miscellaneous Supplies 1 each 10/02/22 06:00 Iv Access IV 10/31/22 23:59 DIRECTED JASON Ondansetron HCl 4 mg 10/02/22 06:55 Ondansetron 4 Mg/2 Ml Vial IVP 11/01/22 06:54 Q4H PRN PRN Nausea / Vomiting Sodium Chloride 0 ml 10/02/22 06:00 Normal Saline Flush 10 Ml Syr IV 10/31/22 23:59 PRN PRN Sodium Chloride 0 ml 10/02/22 06:00 Normal Saline 10 Ml Vial IJ 10/31/22 23:59 DIRECTED PRN Sterile Water 0 ml 10/02/22 06:00 Water,Injection,Sterile 10 Ml Vial IJ 10/31/22 23:59 DIRECTED PRN PFSH Active Problems Active Problems: Problem Status Onset Code Benign neoplasm of colon D12.6 Benign non-nodular prostatic hyperplasia with lower urinary tract symptoms 07/07/15 N40.1 Coronary artery disease involving [place] coronary artery of [place] heart with angina pectoris I25.119 Erectile dysfunction 06/04/16 N52.9 Essential hypertension 02/05/13 I10 BPH w/o urinary obs/LUTS 02/10/12 N40.0 Hyperlipidemia 07/02/11 E78.5 Chronic maxillary sinusitis J32.0 Headache, chronic migraine without aura G43.709 Bradykinesia R25.8 Peripheral neuropathy G62.9 Neck and shoulder pain 07/03/16 M54.2, M25.519 Gross hematuria 04/01/16 R31.0 Effusion of right knee 11/26/16 M25.461 Foraminal stenosis of cervical region M48.02 Cervicalgia M54.2 Moderate obstructive sleep apnea 03/13/19 G47.33 Hypophonia R49.8 Intractable chronic common migraine without aura G43.719 Tinnitus H93.19 Gastro-esophageal reflux disease without esophagitis K21.9 Sensory hearing loss, bilateral H90.3 Parkinson disease 11/14/20 G20 Arthritis of knee M17.10 REM sleep behavior disorder G47.52 Personal history of other malignant neoplasm of skin Z85.828 Actinic keratitis H16.139 Coronary artery disease I25.10 Chronic migraine without aura, with intractable migraine, so stated, with status migrainosus G43.711 Laxity of knee joint M23.8X9 Food impaction of esophagus T18.128A Dysphagia R13.10 Surgical History Surgical History Colonoscopy - IV Sedation (08/03/03) Colonoscopy - IV Sedation (09/29/03) Hx of cholecystectomy S/P excision of lipoma S/P skin biopsy R rastafari and R lower back Dr Epps Stented coronary artery 2011 Tonsillectomy Tobacco Smoking/Tobacco Use Status: Never Passive smoking exposure: No Alcohol Alcohol Intake: never Substance Use Substance use: Never Substance use type: does not use Vital Signs and Lab Results Vital Signs Most Recent Vital Signs in EMR: Most Recent Vital Signs Temp Pulse Resp BP Pulse Ox 36.8 C 75 17 164/99 H 94 10/02/22 08:56 10/02/22 08:56 10/02/22 08:56 10/02/22 08:56 10/02/22 08:56 Lab Results Blood Type / Crossmatch: No Data to Display Complete Blood Count: No Data to Display Complete Metabolic Panel: No Data to Display Liver Function Panel: No Data to Display Coagulation Panel: No Data to Display Cardiac Panel: No Data to Display Arterial Blood Gas: No Data to Display Venous Blood Gas: No Data to Display Pancreas Panel: No Data to Display Thyroid Panel: No Data to Display Infectious Disease: No Data to Display Blood Cultures: No Data to Display Toxicology Panel: No Data to Display Imaging and Studies Imaging and Studies Study information below may be from another EMR and interpreted by another provider. Please see original notes in EMR for more complete details. EKG Summary: DATE/TIME OF SERVICE: 04/30/22 1006 : 1PERFORMING LOCATION: [facility] APPROVED REPORT Exam: Resting ECG Reason for Exam: f/u Patient Location: O HR:66 bpm ECG Measurements Heart Rate 66 AXIS AL 227 P 17 QRSd 172 QRS 45 QT 453 T-17 QTc 475 Conclusion Sinus rhythm...normal P axis, V-rate 50- 99 First-degree AV block Right bundle branch block...QRSd>120, terminal axis(90,270) Echocardiogram Summary: Date of Exam: 08/21/22Sex: M Admission Date: 08/21/22 : 1950 Age: 72 APPROVED REPORT EXAM: Comprehensive 2D, Doppler, and color-flow Echocardiogram Patient Location: Out-Patient [employer] Receiver: Anthony Green RDMS, RVT Indications: edema, check LV function, CAD, sleep apnea Other Information Study Quality: Adequate Conclusion Normal left ventricular wall thickness and chamber size. Estimated ejection fraction is 55%. Wall motion appears normal Right ventricle is mildly enlarged and mildly hypocontractile Left atrium is mildly dilated. Right atrial size is normal Mild mitral annular calcification, mild mitral regurgitation Anesthesia Assessment and Plan Anesthesia History Personal History: No History of Anesthesia Complications Family History: No Family History of Anesthesia Complications Exercise Tolerance Exercise Tolerance: Metabolic Equivalents>4 Pertinent Negatives Pertinent Negatives: No Symptoms of GERD and No Major Pulmonary Symptoms or Complaints Cardiac & Pulmonary Exam Cardiac Exam: Normal S1/S2 Heart Sounds Pulmonary Exam: Clear Bilateral Breath Sounds Implantable Cardiac Device Does patient have a Pacemaker or an ICD?: No Airway Exam Known Difficult Airway: No Mallampati Class: 1 Mouth Opening: Normal (> 3cm) Thyromental Distance: Greater than 3 cm Neck Range of Motion: Full ROM Neck Circumference: Normal Teeth Condition: Normal Dentition ASA Classification ASA Score: ASA 3 Emergency Case?: No NPO Status NPO Status: NPO Clears >2 hours, Solids >8 hours Anesthesia Plan Resuscitation Status: Full Code Anesthesia Technique: General Anesthesia Airway Planned: Natural Airway Monitors Used: Standard Monitors
--- NOTE | 2022-10-02 09:39 | STOM_PTH ---
PATIENT: Moo Barth LOC: [facility] U#:[id number] AGE/SX: 72/M ROOM: RE10/02/[address]: Kiera Fisher MD : 1950 BED: DIS: 10/02/2022 SPEC #: [id number] RECD: 10/02/22 12:41 STATUS: SURY REShirley #: [id number] GABRIELA: 10/02/22 09:[address]: Kiera Fisher DEPT: Surgical Specimen RECD BY: Sabra Moy ENTERED: 10/02/22 12:42 SP TYPE: STOMACH OTHR DR: Amor Myrick DO Tissues: 1 - STOMACH BIOPSY 2 - STOMACH BIOPSY 3 - STOMACH BIOPSY 4 - ESOPHAGUS BIOPSY Procedures: GROSS AND MICRO LEVEL 4 HPV DNA PROBE Comments: [id number]
[2022-10-02] MEDS: Albuterol/Ipratropium 3 ML UPD VIAL (11:04)
--- NOTE | 2022-10-02 12:43 | W.ANESPOSTOP ---
Postoperative Evaluation Date, Time and Location Date Performed: 10/02/22 Time Performed: 12:43 Patient Location: Day Surgery Unit Vital Signs Most Recent Imported Vital Signs: Most Recent Vital Signs Temp Pulse Resp BP Pulse Ox 36.3 C L 70 20 136/75 93 10/02/22 11:30 10/02/22 11:30 10/02/22 11:30 10/02/22 11:30 10/02/22 11:30 Pain Score Most Recent Pain Score: Most Recent Pain Score Pain Level 2 10/02/22 12:43 Assessment Mental Status: Awake (Alert & Oriented to Patient Baseline) Airway and Respiratory Function: Patent airway with normal (patient baseline) respiratory exam Cardiovascular Function: Hemodynamically Stable Hydration Status: Adequately Hydrated Nausea & Vomiting: No Nausea or Vomiting Pain: Pain is tolerable per patient Peripheral Nerve Block: Patient did not receive a nerve block Postoperative Comments:: pt. advised of possible aspiration, regardless of gastric contents being removed at start of procedure. Procedure went well. While waking up, he had multiple laryngospasms with small amount of saliva suctioned. Pt. in [facility] received a nebulizer treatment and supplemental oxygen for a period of time. He is now on room air with SpO2 91% or better. States he feels like he is breathing well and wants to go home. We had a discussion on what to look out for in case he did have an aspiration event. He will go home with appropriate discharge teaching instructions to include calling or going to ED if symptoms worsen. He agrees to plan and will be discharged.
--- NOTE | 2022-10-02 16:06 | PDOC.ANES ---
Date of service: 10/02/22 Time of Service: 15:30 Anesthesia Note Report Anesthesia Note: Pt. called as he developed a fever. I called him back. His and he state he developed fever and chills between 100-101.2F at home. He denies any chest pain, SOB, aches or productive cough, although he does have an infrequent cough he states. I advised he could take tylenol at home 1000mg every 6 hours until fever resolves. I also advised to call 911 or go to the ER if he develops SOB/chest pain or other worrisome symptoms. As he only has a fever now, he would like to manage this at home. He will seek further care if needed. I consulted Dr. Chawla who will follow up with him tomorrow as well.
== END 2022-10-02 13:05 | disposition home or self-care (01) ==
PROVIDERS: PCP Family Medicine; Visit Provider Surgery
PROC: 0DJ68ZZ Inspection of Stomach, Via Natural or Artificial Opening Endoscopic (ICD-10-PCS; CPT 43235; principal; 2022-10-02 09:30)
DX: K21.9 Gastro-esophageal reflux disease without esophagitis (principal); R13.10 Dysphagia, unspecified; K29.70 Gastritis, unspecified, without bleeding; K20.90 Esophagitis, unspecified without bleeding; K22.2 Esophageal obstruction; K31.7 Polyp of stomach and duodenum
CPT/HCPCS: 43239; 88305; 87624; 94640; 94760; J7620

== ENCOUNTER → 2022-10-14 09:53 | Outpatient (BNVA) | payer MEDICARE, BC, SELFPAY | PROVIDERS: PCP Family Medicine; Referring Provider Family Medicine; Visit Provider Surgery ==

== ENCOUNTER → 2022-10-21 12:43 | Outpatient (BNVA) | payer MEDICARE, BC, SELFPAY | PROVIDERS: PCP Family Medicine; Visit Provider Internal Medicine Cardiovascular Disease | DX: R60.0 Localized edema (principal); I10 Essential (primary) hypertension; I25.119 Atherosclerotic heart disease of native coronary artery with unspecified angina pectoris | CPT/HCPCS: 99213 ==

== ENCOUNTER → 2022-11-25 14:17 | Outpatient (BNVA) | payer MEDICARE, BC, SELFPAY | PROVIDERS: PCP Family Medicine; Visit Provider Psychiatry & Neurology Neurology | DX: G20 Parkinson's disease (principal); G47.52 REM sleep behavior disorder; G43.719 Chronic migraine without aura, intractable, without status migrainosus; M54.2 Cervicalgia; I10 Essential (primary) hypertension | CPT/HCPCS: 99214 ==

== ENCOUNTER 2023-04-08 02:12 | Outpatient (CLI) | payer MEDICARE, BC, SELFPAY ==
[2023-04-08 09:25] LABS: Anion Gap 7.3 mmol/L (3-11); BUN 19 mg/dL (7-18); CO2 30.7 mmol/L (21.0-32.0); CREATININE 1.2 mg/dL (0.70-1.30); Chloride 104 mmol/L (98-107); Estimated GFR 64.25 (mL/min/1.73m2); Glucose 125 mg/dL (74-106); Potassium 3.3 mmol/L (3.5-5.1); Sodium 142 mmol/L (136-145)
== END 2023-04-08 02:13 | disposition home or self-care (01) ==
LOC: LBO 02:12
PROVIDERS: PCP Family Medicine; Visit Provider Family Medicine
DX: E87.6 Hypokalemia (principal); I10 Essential (primary) hypertension
CPT/HCPCS: 36415; 80048

== ENCOUNTER → 2023-04-09 10:58 | Outpatient (BNVA) | payer MEDICARE, BC, SELFPAY | PROVIDERS: PCP Family Medicine; Visit Provider Nurse Practitioner Gerontology | DX: R35.0 Frequency of micturition (principal); R39.15 Urgency of urination; R31.0 Gross hematuria | CPT/HCPCS: 51798; 81003; 99213 ==

== ENCOUNTER 2023-04-09 11:31 | Outpatient (REF) | payer MEDICARE, BC, SELFPAY ==
[2023-04-09 12:19] LABS: Bilirubin Negative (Negative); Blood Negative (Negative); Clarity Clear (Clear); Glucose Negative (Negative); Ketones Negative (Negative); Leukocyte Esterase Negative (Negative); Nitrite Negative (Negative); Urobilinogen 0.2 mg/dL (Up to 0.2)
== END 2023-04-09 11:32 | disposition home or self-care (01) ==
LOC: LBN 11:31
PROVIDERS: PCP Family Medicine; Visit Provider Nurse Practitioner Gerontology
DX: R31.29 Other microscopic hematuria (principal)
CPT/HCPCS: 81003

== ENCOUNTER → 2023-05-15 12:48 | Outpatient (BNVA) | payer MEDICARE, BC, SELFPAY | PROVIDERS: PCP Family Medicine; Referring Provider Family Medicine; Visit Provider Psychiatry & Neurology Neurology | DX: G20.C Parkinsonism, unspecified (principal); E61.1 Iron deficiency; G47.52 REM sleep behavior disorder; G43.719 Chronic migraine without aura, intractable, without status migrainosus; G25.81 Restless legs syndrome | CPT/HCPCS: 99214 ==

== ENCOUNTER 2023-05-15 14:27 | Outpatient (CLI) | payer MEDICARE, BC, SELFPAY ==
[2023-05-15 15:11] LABS: Ferritin 52 ng/mL (26-388)
== END 2023-05-15 14:28 | disposition home or self-care (01) ==
LOC: LBO 14:27
PROVIDERS: PCP Family Medicine; Visit Provider Psychiatry & Neurology Neurology
DX: E61.1 Iron deficiency (principal)
CPT/HCPCS: 36415; 99214; 82728

== ENCOUNTER → 2023-05-16 09:30 | Outpatient (BNVA) | payer MEDICARE, BC, SELFPAY | PROVIDERS: PCP Family Medicine; Referring Provider Family Medicine; Visit Provider Internal Medicine Interventional Cardiology | DX: I25.10 Atherosclerotic heart disease of native coronary artery without angina pectoris (principal); I10 Essential (primary) hypertension; E78.5 Hyperlipidemia, unspecified; G20.A1 Parkinson's disease without dyskinesia, without mention of fluctuations; R60.0 Localized edema | CPT/HCPCS: 99213 ==

== ENCOUNTER → 2023-11-12 10:45 | Outpatient (BNVA) | payer MEDICARE, BC, SELFPAY | PROVIDERS: PCP Family Medicine; Referring Provider Family Medicine; Visit Provider Psychiatry & Neurology Neurology | DX: G25.81 Restless legs syndrome (principal); G20.A1 Parkinson's disease without dyskinesia, without mention of fluctuations; G47.52 REM sleep behavior disorder; G43.719 Chronic migraine without aura, intractable, without status migrainosus | CPT/HCPCS: 99214 ==

== ENCOUNTER 2023-11-12 14:07 | Outpatient (CLI) | payer MEDICARE, BC, SELFPAY ==
[2023-11-12 12:43] LABS: Ferritin 44 ng/mL (26-388)
== END 2023-11-12 14:08 | disposition home or self-care (01) ==
LOC: LBO 14:07
PROVIDERS: PCP Family Medicine; Visit Provider Psychiatry & Neurology Neurology
DX: R79.0 Abnormal level of blood mineral (principal); G25.81 Restless legs syndrome
CPT/HCPCS: 36415; 99214; 82728

== ENCOUNTER → 2023-11-14 09:22 | Outpatient (BNVA) | payer MEDICARE, BC, SELFPAY | PROVIDERS: PCP Family Medicine; Referring Provider Family Medicine; Visit Provider Internal Medicine Cardiovascular Disease | DX: R60.0 Localized edema (principal); I25.10 Atherosclerotic heart disease of native coronary artery without angina pectoris | CPT/HCPCS: 99213 ==

== ENCOUNTER 2023-11-19 15:04 | Outpatient (CLI) | payer MEDICARE, BC, SELFPAY ==
--- NOTE | 2023-11-19 14:00 | DI.RAD_ITS ---
Exam(s) XR SHOULDER RT COMPLETE 2+V EXAM: XR SHOULDER RT COMPLETE 2+V CLINICAL HISTORY: BILATERAL SHOULDER PAIN. TECHNIQUE: 2D digital imaging was performed. Two views. COMPARISON: CR XR SHOULDER LT COMPLETE 2+V from 11/19/2023 FINDINGS: Exam limited by under penetration. BONES: No acute fracture is present. No bony destructive lesion is seen. JOINTS: No dislocation present. Severe narrowing of the glenohumeral joint. Spurring at the glenoid . AC joint unremarkable as visualized. SOFT TISSUE: Normal. 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 DATA REPOSITORY: RADIATION DOSE DELIVERED:
--- NOTE | 2023-11-19 14:00 | DI.RAD_ITS ---
Exam(s) XR SHOULDER LT COMPLETE 2+V EXAM: XR SHOULDER LT COMPLETE 2+V CLINICAL HISTORY: BILATERAL SHOULDER PAIN. TECHNIQUE: 2D digital imaging was performed. Three views. COMPARISON: No exams were available for comparison FINDINGS: BONES: No acute fracture is present. No bony destructive lesion is seen. JOINTS: No dislocation present. Severe narrowing of the glenohumeral joint with a [id number] appea anabella. Periarticular spurring. AC joint is unremarkable as visualized. SOFT TISSUE: Normal. IMPRESSION: Severe degenerative changes of the glenohumeral joint. DATA REPOSITORY: RADIATION DOSE DELIVERED:
== END 2023-11-19 15:05 | disposition home or self-care (01) ==
LOC: DIORS 15:05
PROVIDERS: PCP Family Medicine; Referring Provider Family Medicine; Visit Provider Student in an Organized Health Care Education/Training Program
DX: M19.011 Primary osteoarthritis, right shoulder; M19.012 Primary osteoarthritis, left shoulder
CPT/HCPCS: 99213; 73030

== ENCOUNTER 2023-12-03 01:41 | Outpatient (RCR) | payer MEDICARE, BC, SELFPAY ==
[2023-12-03] MEDS: IRON SUCROSE COMPLEX 200 MG in Normal Saline 100 ML 440 MG IVPB (13:55)
[2023-12-03] MEDS: Normal Saline Flush 10 ML SYR IVP (13:57)
== END 2023-12-03 23:59 | disposition home or self-care (01) ==
LOC: INF 01:41
PROVIDERS: PCP Family Medicine; Visit Provider Psychiatry & Neurology Neurology
DX: D50.9 Iron deficiency anemia, unspecified (principal)
CPT/HCPCS: 96365; J1756

== ENCOUNTER 2024-01-28 14:40 | Outpatient (CLI) | payer MEDICARE, BC, SELFPAY ==
[2024-01-28 14:40] LABS: Ferritin 80 ng/mL (26-388)
== END 2024-01-28 14:41 | disposition home or self-care (01) ==
LOC: LBO 14:43
PROVIDERS: PCP Family Medicine; Visit Provider Psychiatry & Neurology Neurology
DX: G25.81 Restless legs syndrome (principal); R79.0 Abnormal level of blood mineral
CPT/HCPCS: 36415; 82728

== ENCOUNTER → 2024-04-07 10:56 | Outpatient (BNVA) | payer MEDICARE, BC, SELFPAY | PROVIDERS: PCP Family Medicine; Visit Provider Nurse Practitioner Gerontology | DX: R39.15 Urgency of urination (principal); R31.0 Gross hematuria; N40.1 Benign prostatic hyperplasia with lower urinary tract symptoms | CPT/HCPCS: 51798; 81003; 99213 ==

== ENCOUNTER → 2024-05-12 09:12 | Outpatient (BNVA) | payer MEDICARE, BC, SELFPAY | PROVIDERS: PCP Family Medicine; Referring Provider Family Medicine; Visit Provider Psychiatry & Neurology Neurology | DX: G20.A1 Parkinson's disease without dyskinesia, without mention of fluctuations (principal); G47.52 REM sleep behavior disorder; G43.719 Chronic migraine without aura, intractable, without status migrainosus; G25.81 Restless legs syndrome | CPT/HCPCS: 99215 ==

== ENCOUNTER 2024-05-17 08:07 | Outpatient (CLI) | payer MEDICARE, BC, SELFPAY ==
--- NOTE | 2024-05-17 08:00 | RT.EKG_ITS ---
APPROVED REPORT Exam: Resting ECG Reason for Exam: CAD Patient Location: O HR:93 bpm ECG Measurements Heart Rate 93 AXIS MO 106 P -19 QRSd 58 QRS 128 QT 311 T -23 QTc 387 Conclusion Sinus rhythm...normal P axis, V-rate 50- 99 RBBB
== END 2024-05-17 08:08 | disposition home or self-care (01) ==
LOC: DI.CARD 08:08
PROVIDERS: PCP Family Medicine; Visit Provider Registered Nurse
DX: I25.10 Atherosclerotic heart disease of native coronary artery without angina pectoris (principal)
CPT/HCPCS: 93010

== ENCOUNTER → 2024-05-17 08:44 | Outpatient (BNVA) | payer MEDICARE, BC, SELFPAY | PROVIDERS: PCP Family Medicine; Visit Provider Registered Nurse | DX: I25.119 Atherosclerotic heart disease of native coronary artery with unspecified angina pectoris (principal); I10 Essential (primary) hypertension | CPT/HCPCS: 99214 ==

== ENCOUNTER 2024-08-23 02:23 | Outpatient (RCR) | payer MEDICARE, BC, SELFPAY ==
[2024-08-23] MEDS: Normal Saline Flush 5 ML SYR IVP (10:10)
[2024-08-23] MEDS: EPTINEZUMAB-JJMR 300 MG in Normal Saline 100 ML 206 MG IVPB (10:29)
== END 2024-09-01 23:59 | disposition home or self-care (01) ==
LOC: INF 02:23
PROVIDERS: PCP Family Medicine; Visit Provider Psychiatry & Neurology Neurology
DX: G43.709 Chronic migraine without aura, not intractable, without status migrainosus (principal)
CPT/HCPCS: 96365; J3032

== ENCOUNTER → 2024-11-10 09:20 | Outpatient (BNVA) | payer MEDICARE, BC, SELFPAY | PROVIDERS: PCP Family Medicine; Referring Provider Family Medicine; Visit Provider Psychiatry & Neurology Neurology | DX: G20.A1 Parkinson's disease without dyskinesia, without mention of fluctuations (principal); G47.52 REM sleep behavior disorder; G43.719 Chronic migraine without aura, intractable, without status migrainosus; G25.81 Restless legs syndrome; E11.59 Type 2 diabetes mellitus with other circulatory complications; I10 Essential (primary) hypertension | CPT/HCPCS: 99214 ==

== ENCOUNTER → 2024-11-15 09:20 | Outpatient (BNVA) | payer MEDICARE, BC, SELFPAY | PROVIDERS: PCP Family Medicine; Referring Provider Family Medicine; Visit Provider Registered Nurse | DX: I25.10 Atherosclerotic heart disease of native coronary artery without angina pectoris (principal); G20.C Parkinsonism, unspecified; E11.59 Type 2 diabetes mellitus with other circulatory complications; I10 Essential (primary) hypertension; Z79.811 Long term (current) use of aromatase inhibitors; Z79.02 Long term (current) use of antithrombotics/antiplatelets | CPT/HCPCS: 99214 ==

== ENCOUNTER 2024-11-24 02:18 | Outpatient (RCR) | payer MEDICARE, BC, SELFPAY ==
[2024-11-24] MEDS: EPTINEZUMAB-JJMR 300 MG in Normal Saline 100 ML 206 MG IVPB (10:23)
[2024-11-24] MEDS: Normal Saline Flush 10 ML SYR IVP (11:08)
== END 2024-12-02 23:59 | disposition home or self-care (01) ==
LOC: INF 02:18
PROVIDERS: PCP Family Medicine; Visit Provider Psychiatry & Neurology Neurology
DX: G43.709 Chronic migraine without aura, not intractable, without status migrainosus (principal)
CPT/HCPCS: 96365; J3032

== ENCOUNTER 2025-03-02 02:25 | Outpatient (RCR) | payer MEDICARE, BC, SELFPAY ==
[2025-03-02] MEDS: EPTINEZUMAB-JJMR 300 MG in Normal Saline 100 ML 206 MG IVPB (10:14)
[2025-03-02] MEDS: Normal Saline Flush 10 ML SYR IVP (10:14)
== END 2025-03-04 23:59 | disposition home or self-care (01) ==
LOC: INF 02:25
PROVIDERS: PCP Family Medicine; Visit Provider Psychiatry & Neurology Neurology
DX: G43.709 Chronic migraine without aura, not intractable, without status migrainosus (principal)
CPT/HCPCS: 96365; J3032

== ENCOUNTER → 2025-03-14 09:11 | Outpatient (BNVA) | payer MEDICARE, BC, SELFPAY | PROVIDERS: PCP Family Medicine; Referring Provider Family Medicine; Visit Provider Psychiatry & Neurology Neurology | DX: G20.A1 Parkinson's disease without dyskinesia, without mention of fluctuations (principal); G47.52 REM sleep behavior disorder; G43.719 Chronic migraine without aura, intractable, without status migrainosus; G25.81 Restless legs syndrome; E11.59 Type 2 diabetes mellitus with other circulatory complications; I10 Essential (primary) hypertension | CPT/HCPCS: 99214 ==

== ENCOUNTER 2025-04-19 16:26 | Outpatient (REF) | payer MEDICARE, BC, SELFPAY ==
[2025-04-20 23:15] LABS: Campylobacter PCR Negative (Negative); Shiga Toxin PCR Negative (Negative); Shigella/Enteroinvasive Ecoli Negative (Negative)
== END 2025-04-19 16:27 | disposition home or self-care (01) ==
LOC: NCHCN 16:26
PROVIDERS: PCP Family Medicine; Visit Provider Family Medicine
DX: R19.7 Diarrhea, unspecified (principal)
CPT/HCPCS: 87015; 87269; 87272; 87505